=== PATIENT | male | born 1990 | race African-American/Black ===

== ENCOUNTER 2020-10-07 02:22 | Emergency (ER) | payer OTHER ==
[~2020-10-07] VITALS: Ht 177.8 cm; Wt 112.9 kg
[2020-10-07] MEDS ORDERED: IBUPROFEN 400 MG TABLET PO ONE (02:30)
[2020-10-07] MEDS ORDERED: HYDROCODONE/APAP 5/325MG TABLET ONE (02:48)
[2020-10-07] MEDS ORDERED: IBUPROFEN 400 MG TABLET ONE (02:48)
[2020-10-07] MEDS ORDERED: HYDROCODONE/APAP 5/325MG TABLET PO ONE (03:00)
--- NOTE | 2020-10-07 03:13 | NUR ---
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
[2020-10-07] MEDS ORDERED: IBUP-1955 PO (03:27)
--- NOTE | 2020-10-07 03:30 | NUR ---
EMT AT BED SIDE TO APPLY KNEE IMMOBILIZER AND PRIVED PT WITH CRUTCHES
[2020-10-07] MEDS ORDERED: NAPR-1009 PO (03:44)
--- NOTE | 2020-10-07 03:51 | NUR ---
PT IS MEDICALLY STBALE FOR D/C. PT WAS PROVIDED W/ R KNEE IMMOBILIZER HOEVER HE REFUSED THE CRUTCHES. RISK VS. BENEFITS EXPLAINED TO THE PT. Written and verbal after care instructions given. Patient verbalizes understanding of instruction. Pt remained in his bed awaiting for his ride.
--- NOTE | 2020-10-07 04:20 | NUR ---
Patient discharged to home in stable condition. Written and verbal after care instructions given. Patient verbalizes understanding of instruction. pt was provided with a pair ofa crutches prior to d/c. instructions about the use of crutches were provided to the pt w/ demonstration.
[2020-10-07 06:29] VITALS: BP 122/79
== END 2020-10-07 04:20 | disposition home or self-care (01) ==
LOC: ER 02:23
DX: S83.8X1A Sprain of other specified parts of right knee, initial encounter (principal); Z79.899 Other long term (current) drug therapy; W18.39XA Other fall on same level, initial encounter; Y93.89 Activity, other specified; Y92.89 Other specified places as the place of occurrence of the external cause; Y99.8 Other external cause status
CPT/HCPCS: 73564-TC